=== PATIENT | female | born 1950 | race Caucasian/White ===

== ENCOUNTER → 2018-04-14 | Day surgery (SDC) | payer BC, MEDICARE ==
[~2018-04-14] MED LIST: FENTANYL CITRATE/PF 100MCG/2 ML INJ ONE; HEPARIN SOD (PORCINE) 1000 UNIT/ML 30ML ONE; LIDOCAINE HCL 2% LOCAL 20 ML VIAL ONE; MIDAZOLAM HCL 2 MG/2 ML VIAL ONE; MIRTAZAPINE15 MG PO; SODIUM CHLORIDE 0.9% 1000ML 1,000 ML ONE; SODIUM CHLORIDE 0.9% 500ML 500 ML ONE; TESSALON PERLE100 MG PO; XANAX1 MG PO
[2018-04-14 08:42] LABS: BASOPHILS % 0.4 % (0.0-1.0); EOSINOPHILS # (AUTO) 0.1 (0.0-0.4); EOSINOPHILS % 1.5 % (0.0-6.0); HEMATOCRIT 39.8 % (34.2-44.1); HEMOGLOBIN 13.1 g/dL (12.0-16.0); LYMPHOCYTES # (AUTO) 1.6 (1.0-3.2); LYMPHOCYTES % 16.2 % (18.0-39.1); MEAN CORPUSCULAR HEMOGLOBIN 28.1 pg (28-32); MEAN CORPUSCULAR HGB CONC 32.9 g/dL (31-35); MEAN CORPUSCULAR VOLUME 85.2 fL (81-99); MONOCYTES # (AUTO) 0.6 (0.2-0.8); MONOCYTES % 6.5 % (4.4-11.3); NEUTROPHILS # (AUTO) 7.2 (2.1-6.9); NEUTROPHILS % 74.9 % (38.7-80.0); PLATELET COUNT 409 x10e3/uL (140-360); RED BLOOD COUNT 4.67 x10e6/uL (3.6-5.1); RED CELL DISTRIBUTION WIDTH 14.5 % (11.7-14.4)
[2018-04-14 08:52] LABS: INR 1.19; PROTHROMBIN TIME 14.2 seconds (11.9-14.5)
[2018-04-14 08:57] LABS: ANION GAP 16.8 mmol/L (8-16); BLOOD UREA NITROGEN 7 mg/dL (7-26); BUN/CREATININE RATIO 10 (6-25); CALCIUM 9.8 mg/dL (8.4-10.2); CARBON DIOXIDE 27 mmol/L (22-29); CHLORIDE 100 mmol/L (98-107); EST GLOMERULAR FILTRATION RATE > 60 ML/MIN (60-); GLUCOSE 113 mg/dL (74-118); POTASSIUM 3.8 mmol/L (3.5-5.1); SODIUM 140 mmol/L (136-145)
--- NOTE | 2018-04-24 13:27 | Diagnostic Imaging Report ---
PROCEDURE: Placement of a single lumen chest power port with fluoroscopic guidance. 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 The purposes, alternatives, risks, and benefits were explained and discussed. All questions were answered and written consent was obtained. RADIATION EXPOSURE: Fluoroscopy Time: 0.5 min, Dose: 20.1 cGycm2 ANESTHESIA: Intravenous conscious sedation was administered by clinical lab assistant nursing. Continuous hemodynamic and respiratory monitoring was performed, including the use of pulse oximetry. MEDICATIONS: Fentanyl and versed per nursing administration records 20 cc of 1% subcutaneous lidocaine DEVICE: A 7.8 [place] single lumen chest power port (Deltec Polyflow Low Profile). This power port is CT power injectable. TECHNIQUE: The risks, benefits and alternatives of the procedure were discussed with the patient and informed consent was obtained. The patient was brought to the Angiography suite, placed supine on the fluoroscopy table and the right neck was prepped and draped in standard sterile fashion. All elements of maximal sterile barrier technique were followed including cap and mask, sterile gown, sterile gloves, large sterile sheet, hand hygiene and 2% chlorhexidine for cutaneous antisepsis. The skin was anesthetized with 20cc'c 2%xylocaine. The right internal jugular vein was found to be compressible and patent with ultrasound. Under ultrasound guidance, the right internal jugular vein was accessed using a 5 Fr micropuncture needle. Under fluoroscopic guidance, a 5Fr. dilator was used to pass an 0.038 3J wire into the IVC to confirm venous placement. The venotomy site was then dilated to a 8 divehi peel away sheath. Under fluoroscopic guidance, the catheter was then placed into the proximal RA. Attention was then turned to formation of the subcutaneous pocket. After local anesthesia with lidocaine, a small chest incision was made, and a port pocket was formed via sharp and blunt dissection on the anterior chest wall. The port was then secured to the pocket using 3-0 Vicryl sutures. The catheter was then back tunneled through the subcutaneous tissue via blunt dissection from the venotomy site to the chest incision. The catheter was positioned at the cavoatrial junction. The catheter was cut, connected to the port reservoir, and checked for leaks. After fluoroscopic confirmation of proper position, the chest pocket was flushed with saline and the incision was closed with interrupted subcutaneous 3-0 Vicryl sutures. The port lumen was accessed, aspirated and terminally flushed with 4cc's of 100 units per cc heparin solution. Steri strips and sterile dressings were then applied. The patient tolerated the procedure well with no immediate complication and was transported to the recovery room in stable condition. FINDINGS: 1. Patent right internal jugular vein accessed under sonographic guidance. 2. Placement of single lumen chest power port via the right IJV. This power port is CT injectable. 3. Post procedure chest fluoroscopy showed the catheter tip at the superior cavoatrial junction, no kinks along the course of the catheter, and no pneumothorax. Of note, there is an opacity overlying the right costophrenic angle with apparent pleural thickening on the right, incompletely evaluated. IMPRESSION: Placement of single lumen chest power port via the right IJV. Port is ready for immediate use. An opacity overlying the right costophrenic angle with apparent pleural thickening on the right, incompletely evaluated. There is known lung cancer per patient about to undergo treatment. No prior imaging is available at the time of this interpretation, but recommend comparison to outside hospital imaging. Signed by: Dr. Sindhu Briceño MD on 04/14/2018 1:09 PM
== END | disposition home or self-care (01) ==
LOC: CATH LAB 07:59 → EDSTATUS 09:00
PROVIDERS: ATTEND Radiology Diagnostic Radiology
DX: C34.90 Malignant neoplasm of unspecified part of unspecified bronchus or lung (principal); F17.210 Nicotine dependence, cigarettes, uncomplicated
CPT/HCPCS: 36415; 36561; 80048; 85025; 85610; 85730; C1788; J1644; J2001; J2250; J7030; J7040; 77002